=== PATIENT | female | born 1980 | race African-American/Black ===

== ENCOUNTER 2020-04-11 09:48 | Emergency (ER) | payer OTHER ==
[~2020-04-11] VITALS: Ht 152.4 cm; Wt 97.5 kg
[2020-04-11 10:57] LABS: EOSINOPHILS 1.5 % (0.0-3.0)
[2020-04-11 10:59] LABS: ABSOLUTE NEUTROPHILS 5.5 thou/uL (1.4-8.2); BASOPHILS 1.2 % (0.0-2.0); HEMATOCRIT 36.1 % (37.0-47.0); HEMOGLOBIN 11.8 gm/dL (12.0-15.0); LYMPHOCYTES 38.4 % (24.0-44.0); MCH 27.5 pg (26.0-34.0); MCHC 32.6 g/dL (28.0-37.0); MCV 84.3 fL (80.0-100.0); MONOCYTES 10.5 % (1.0-8.0); PLATELET COUNT 313 thou/uL (150-400); POLYS 48.4 % (36.0-66.0); RBC 4.29 mil/uL (4.20-5.00); RDW 15.7 % (10.5-14.5); WBC 11.3 thou/uL (4.0-11.0)
[2020-04-11 11:08] LABS: ANION GAP 5 mmol/L (7-16); BUN 14 mg/dL (7-18); CALCIUM 8.5 mg/dL (8.5-10.1); CHLORIDE 101 mmol/L (98-107); CO2 29 mmol/L (21-32); CREATININE 0.9 mg/dL (0.6-1.0); GLUCOSE 242 mg/dL (74-106); POTASSIUM 3.3 mmol/L (3.5-5.1); SODIUM 135 mmol/L (136-145)
[2020-04-11 11:18] LABS: ALBUMIN 3.2 g/dL (3.4-5.0); SGOT 16 U/L (15-37); SGPT 26 U/L (30-65); TOTAL BILIRUBIN 0.2 mg/dL (0.2-1.0); TOTAL PROTEIN 7.4 g/dL (6.4-8.2); TROPONIN-I <0.06 ng/mL (<0.06)
[2020-04-11 17:38] LABS: URINE BILIRUBIN NEGATIVE (Negative); URINE BLOOD NEGATIVE (Negative); URINE CLARITY CLEAR; URINE COLOR YELLOW; URINE GLUCOSE-RANDOM* NEGATIVE (Negative); URINE KETONES 1+ (Negative); URINE NITRITE-REFLEX NEGATIVE (Negative); URINE PROTEIN (DIPSTICK) NEGATIVE (Negative); URINE SPECIFIC GRAVITY 1.015 (1.005-1.035); URINE UROBILINOGEN 0.2 E.U./dl (0.2-1.0)
[2020-04-11 17:39] LABS: URINE LEUKOCYTES-REFLEX 1+ (Negative)
[2020-04-11] MEDS ORDERED: BACTRIM DS TAB1 EACH PO (17:47)
[2020-04-11 17:55] LABS: MUCUS 0-3 Light strn/LPF (None Seen); SQUAMOUS 4-10 Moderate /LPF (0-3)
[2020-04-11 17:56] LABS: CASTS None Seen /LPF (None Seen); CRYSTALS None Seen /LPF (None Seen); URINE RBC 0-2 Rare /HPF (0-2); URINE WBC-REFLEX 6-15 Few /HPF (0-5)
[2020-04-11 18:29] VITALS: BP 156/102
--- NOTE | 2020-04-11 19:30 | HC ---
[facility] [place] [address] CONSULTATION Name: BALTA TSANG Room #: DEP [facility] [id number] Admission: 04/11/20 Attend Phys: Discharge: 04/11/20 Date of : 84 Report #: [id number] THIS REPORT FOR: cc: Jannette Nicolas MD, Teresa MD Khosla,Jerrell Mora MD ~ DATE OF SERVICE: 04/11/2020 HISTORY OF PRESENT ILLNESS: This is a 40-year-old female patient who was evaluated by me what looks like somewhat nonspecific and complicated symptoms. History is not very clear for the reason, which I will describe later on. She said she is having symptoms from 1-2 weeks' duration. Symptoms are visual as well as vertigo. Vertigo is actually more of dizziness and it tends to come in when she tries to stand up. As far as blurring of the vision is concerned, she says the left eye was getting blurry and the right eye is getting blurry now. It comes for a second and then it goes away. She has a history of migraine. She has been even admitted with migraine in the past. To the Emergency Room physician she has told him that she had this same visual problem long time ago, but when I asked her to describe what does she mean by long time, she said that it is so long that she does not even remember. She told me that she goes to Dr. Hill and for her MS. I asked her why she did not call Dr. Hill because that would have been the best thing to do because he has her records. She said she just did not. I had asked Emergency Room physician to speak to her neurologist, Dr. Hill, to get his guidance about the management of this patient since he knows the patient very well. Emergency Room physician called me and he told me that Dr. Hill is not in the office today. So, I came and talked to the patient and got the above history. Subsequently, I called myself Dr. Hill's office and I was able to talk to the nurse practitioner whom the patient usually sees and has an appointment on 04/15/2020. She read the note and she told me that Dr. Hill has made an appointment with a neurosurgeon, Dr. Bell and it was done yesterday. She indicated that the patient may have called Dr. Hill yesterday and I came back and talked to the patient and she did indicate that she called Dr. Hill yesterday at that time. The patient is on Tysabri. They are checking her for any PML and they have not found any evidence for PML. As I understand from the nurse practitioner, her CELSO antibodies are negative. She does have baseline weakness in the right leg, but she says that is longstanding. She estimates that her last MRI was done about 6 months ago. She does not even remember the last time she got steroids. REVIEW OF SYSTEMS: A 14-point review of system is carried out. It would appear that the patient has a longstanding history of migraine. In fact, she had been admitted for her history of migraine into the hospital a couple of times. Today, her potassium is low, but her blood sugar is pretty high. [facility] [address] [place] [address] CONSULTATION Name: BALTA TSANG Room #: DEP LOUISE Godfrey#: [id number] Admission: 04/11/20 Attend Phys: Discharge: 04/11/20 Date of : 84 Report #: [id number] PAST MEDICAL HISTORY: Positive for MS, but I do not have any prior records and it is with Dr. Hill in [facility]. FAMILY HISTORY: Unremarkable. 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 PHYSICAL EXAMINATION: Indicate that this patient is alert, responsive. She is able to follow simple command. Her speech looks intact. Her cranial nerve examination on my examination looks unremarkable. I cannot have a good look at the patient's fundus, but there is no nystagmus that I can see. She does have some diminished strength in the right leg, which is old. Her position sense appeared to be intact. She does not appear to have any hyperreflexia or an upgoing plantar. Her cardiac and respiratory examinations appear noncontributory. IMPRESSION: I am not convinced the patient's symptoms are because of multiple sclerosis and even if they are, I do not believe there is any indication to give her steroids. It looks like she has already contacted her neurologist and they would have been the best to address her questions because they have her old records and we do not. I gave her 2 options. I told her that I can admit her and try to figure out what the causes of her symptoms are. She told me that she is going to call her own neurologist and talk to them first. I do not know how much workup she has for her migraine. If I have to do the workup, I will do the CT angiogram of the head and neck just to make sure there is no dissections or any other pathology is there, but she needs an ophthalmology examination. Unfortunately, no warehouse order filler comes to our hospital. I do not think she should wait for a neurophthalmology appointment, which will be several months and get a full ophthalmology examination, although she did have one not too long ago, according to her and according to Emergency Room physician. I will let her talk to her neurologist and if she wants her care to be coordinated to them, I will leave it up to them. Otherwise, I will suggest to get an Ophthalmology examination pretty fast, even today either at [facility] or [facility] and if I have to do any further testing, I will do the CT angio of the head and neck to make sure there is no other pathology assuming that she did not have vascular workup in the past, but if she has been admitted twice to [facility], she may have already had that workup. History is not clear and evasive and that makes it difficult to make the diagnosis. She will need a sed rate sometime even if she is only 40 and the other thing I can think about is CT angio to look for any outside chance of dissection or any vascular pathology, but she does not think it is migraine or anything vascular and she believes it is multiple sclerosis and she is making a decision whether she would like us to do the further testing here or want to [facility] [address] [place] [address] CONSULTATION Name: BALTA TSANG Room #: DEP LOUISE Godfrey#: [id number] Admission: 04/11/20 Attend Phys: Discharge: 04/11/20 Date of : 84 Report #: [id number] coordinate the care with her own neurologist and follow their recommendation. Thank you very much for this referral. Addendum This addendum is being added at the time of signing this note. I came back and talked to patient again after the consult and the main recommendation I had was to do CT angiogram of head and neck for the reason descibed above if is excluded. I conveyed that recommendation to ED physician and he will arrange that if the patient wants to proceed with that because she wanted to think about that <ELECTRONICALLY SIGNED> By: Jerrell Bermudez MD 04/11/20 1930 1531 1616 Jerrell Bermudez MD /nt
--- NOTE | 2020-04-12 07:12 | EKG ---
[address] [address] ELECTROCARDIOGRAM REPORT Name: BRINDA TSANGJESSICA Lerma [facility] [id number] Admission: 04/11/20 Attend Phys: Discharge: 04/11/20 Date of : 84 Report #: [id number] [facility] ED Test Date: 2020-04-11 Test Time: 18:04:39 Pat Name: BALTA TSANG Department: Room: Gender: F Record Filing Clerk: BRIJESH : 1980 Requested By: Antonio Stanley Order Number: [id number] MD: Clyde Burt Measurements Intervals [place] Rate: 90 P: 58 KS: 154 QRS: 17 QRSD: 96 T: 15 QT: 380 QTc: 465 Interpretive Statements Sinus rhythm Left ventricular hypertrophy No previous ECG available for comparison Electronically Signed On 04-12-2020 7:12:21 [facility] [employer] by Clyde Burt [email or web address] <ELECTRONICALLY SIGNED> By: Clyde Burt MD, [facility] 04/12/20 0712 1804 1804 Clyde Burt MD, FACC /EPI
== END 2020-04-11 18:50 | disposition home or self-care (01) ==
LOC: ER 09:48
PROVIDERS: Emergency Medicine
DX: N39.0 Urinary tract infection, site not specified (principal); H53.8 Other visual disturbances; G35 Multiple sclerosis; R73.9 Hyperglycemia, unspecified